=== PATIENT | male | born 1965 | race Hispanic/Latino ===

== ENCOUNTER 2018-03-04 16:42 | Emergency (ER) | payer SELFPAY ==
[2018-03-04 17:04] VITALS: BP 162/108
[2018-03-04 17:40] LABS: Basophils # (Auto) 0.1 K/mm3 (0.0-0.1); Basophils % (Auto) 1.1 % (0.0-1.8); Eosinophils # (Auto) 0.1 K/mm3 (0.0-0.4); Eosinophils % (Auto) 1.2 % (0.0-4.3); Hematocrit 45.4 % (35.5-45.6); Hemoglobin 16.1 gm/dl (11.8-15.2); Lymphocytes # (Auto) 2.2 K/mm3 (1.2-5.4); Lymphocytes % (Auto) 30.5 % (13.4-35.0); Mean Corpuscular HGB Conc 35 % (32-34); Mean Corpuscular Hemoglobin 33 pg (28-32); Mean Corpuscular Volume 93 fl (84-94); Monocytes # (Auto) 0.8 K/mm3 (0.0-0.8); Monocytes % (Auto) 11.7 % (0.0-7.3); Platelet Count 217 K/mm3 (140-440); Red Cell Distribution Width 13.3 % (13.2-15.2)
[2018-03-04 17:54] LABS: BUN/Creatinine Ratio 16; Blood Urea Nitrogen 13 mg/dL (9-20); Calcium 9.6 mg/dL (8.4-10.2); Hemolysis Index 16
== END 2018-03-04 19:19 | disposition left against medical advice (07) ==
LOC: ED 16:42
DX: F41.9 Anxiety disorder, unspecified (principal); Z53.21 Procedure and treatment not carried out due to patient leaving prior to being seen by health care provider; Z79.899 Other long term (current) drug therapy
CPT/HCPCS: 36415; 80048; 85025; G0480; 80320

== ENCOUNTER 2018-11-01 10:28 | Emergency (ER) | payer SELFPAY ==
[2018-11-01 10:57] VITALS: BP 154/100
[2018-11-01] MEDS ORDERED: ASPIRIN PO ONE (10:58)
[2018-11-01] MEDS ORDERED: NITRO-BID 2% TP ONE (11:15)
--- NOTE | 2018-11-01 11:30 | Emergency Department Report ---
ED Chest Pain HPI - General Chief Complaint: Chest Pain Stated Complaint: CHEST PAIN Time Seen by Provider: 11/01/18 11:03 Source: EMS Mode of arrival: Ambulatory Limitations: No Limitations - History of Present Illness Initial Comments: 53-year-old male with a past medical history of hypertension and tobacco use as well as anxiety and previous suicidal ideation presents to the hospital complaints of chest pain since yesterday. Pain is in the center of the chest and described as a sharp pain radiating to the left side. Pain started yesterday a.m. and seemed to improve until this morning. Patient did have one episode of vomiting and denies diaphoresis or shortness of breath. He received aspirin and nitroglycerin in route with some mild improvement. He recently returned from a car ride from [place]. He denies calf tenderness, leg edema, history of DVT/PE, or previous stress testing. Reports a significant family history of CAD/ND. Patient has been noncompliant with blood pressure medications for at least 1 year. Severity scale (0 -10): 5 - Related Data Allergies Allergy/AdvReac Type Severity Reaction Status Date / Time No Known Allergies Allergy Unverified 03/04/18 17:04 Heart Score - HEART Score History: Slightly suspicious EKG: Non-specific Age: 45-65 Risk factors: 1-2 risk factors Troponin: < normal limit (unable to obtain since patient left AMA and refused blood draw) HEART Score: 3 ED Review of Systems ROS: Stated complaint: CHEST PAIN Other details as noted in HPI Comment: All other systems reviewed and negative ED Past Medical Hx - Past Medical History Previous Medical History?: Yes Hx Hypertension: Yes Hx CVA: No Hx Heart Attack/AMI: No Hx Congestive Heart Failure: No Hx Diabetes: No Hx Deep Vein Thrombosis: No Hx Pulmonary Embolism: No Hx GERD: No Hx Liver Disease: No Hx Renal Disease: No Hx of Cancer: No Hx Sickle Cell Disease: No Hx Arthritis: No Hx Headaches / Migraines: No Hx Seizures: No Hx Kidney Stones: No Hx Psychiatric Treatment: Yes ("long time ago") Hx Asthma: No Hx COPD: No Hx Tuberculosis: No Hx Dementia: No Hx HIV: No Additional medical history: hepatitis C, sleep apnea- does not have C-pap - Surgical History Past Surgical History?: No Hx Coronary Stent: No Hx Open Heart Surgery: No Hx Pacemaker: No Hx Internal Defibrillator: No Hx Cholecystectomy: No Hx Appendectomy: No Hx Breast Surgery: No - Social History Smoking Status: Current Every Day Smoker Substance Use Type: Alcohol ED Physical Exam - General Limitations: No Limitations - Other Other exam information: General: No limitations, patient is alert in no acute distress Head exam: Atraumatic, normocephalic Eyes exam: Normal appearance, pupils equal reactive to light, extraocular movements intact ENT: Moist mucous membrane, normal oropharynx Neck exam: Normal inspection, full range of motion, no meningismus nontender Respiratory exam: Clear to auscultation bilateral, no wheezes, rales, crackles Cardiovascular: Normal rate and rhythm, normal heart sounds, chest wall nontender Abdomen: Soft, nondistended, and nontender, with normal bowel sounds, no rebound, or guarding Extremity: Full range of motion normal inspection no deformity, no calf tenderness or edema Back: Normal Inspection, full range of motion, no tenderness Neurologic: Alert, oriented x3, cranial nerves intact, no motor or sensory deficit Psychiatric: normal affect, normal mood Skin: Warm, dry, intact ED Course Vital Signs 11/01/18 10:49 Temperature 98.2 F Pulse Rate 100 H Respiratory 14 Rate Blood Pressure 154/100 Blood Pressure 159/100 [Right] O2 Sat by Pulse 100 Oximetry - Reevaluation(s) Reevaluation #1: 11/01/18 11:32 Patient signed AMA after EKG. Labs draw was pending ANTONIO score - Antonio Score Age > 65: (0) No Aspirin use within the Past 7 Days: (0) No 3 or more CAD Risk Factors: (0) No 2 or more Angina events in past 24 hrs: (1) Yes Known CAD with more than 50% Stenosis: (0) No Elevated Cardiac Markers: (0) No (not drawam) ST Deviation Greater than 0.5mm: (0) No ANTONIO Score: 1 ED Medical Decision Making - EKG Data -: EKG Interpreted by Me EKG shows normal: sinus rhythm, axis (qrs 47), QRS complexes (qrsd 95), ST-T waves (no stemi) Rate: normal (90) - EKG Data When compared to previous EKG there are: previous EKG unavailable - Medical Decision Making Patient signed out AMA after M.D. evaluation and EKG. Labs and chest x-ray were pending. - Differential Diagnosis ND, anxiety, unstable angina, PE, aortic dissection Critical Care Time: No Critical care attestation.: If time is entered above; I have spent that time in minutes in the direct care of this critically ill patient, excluding procedure time. ED Disposition Clinical Impression: Chest pain, Noncompliance with medications, Hypertension, Smoker Disposition: LEFT AGAINST MED ADVICE Is pt being admited?: No Condition: Stable Forms: AMA Form Time of Disposition: 11:35
== END 2018-11-01 11:26 | disposition left against medical advice (07) ==
LOC: ED 10:28
DX: R07.89 Other chest pain (principal); I10 Essential (primary) hypertension; F17.200 Nicotine dependence, unspecified, uncomplicated
CPT/HCPCS: 93005; 93010